=== PATIENT | male | born 1990 | race Caucasian/White ===

== ENCOUNTER 2020-08-21 15:21 | Emergency (ER) | payer OTHER, MEDICAID ==
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
[2020-08-21 17:40] VITALS: BP 117/70
== END 2020-08-21 17:59 | disposition home or self-care (01) ==
LOC: ED 15:21
DX: M62.830 Muscle spasm of back (principal); V43.52XA Car driver injured in collision with other type car in traffic accident, initial encounter; Y92.410 Unspecified street and highway as the place of occurrence of the external cause; M51.37 Other intervertebral disc degeneration, lumbosacral region; F17.200 Nicotine dependence, unspecified, uncomplicated
CPT/HCPCS: 99283; 99284

== ENCOUNTER 2020-09-19 04:09 | Emergency (ER) | payer MEDICAID ==
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
[2020-09-19 04:22] VITALS: BP 119/95
--- OUTSIDE RECORDS SUMMARY | 2020-09-24 01:25 | EXTERNAL MEDICAL SUMMARY RPT | Continuity of Care Document ---
:1990 Demographics Phone Unavailable Preferred Language Unknown Marital Status Unknown Episcopal Affiliation Unknown Race Unknown Ethnic Group Unknown Author Organization [facility] Address [address] [place] [address] Phone Social History date description facility [phone]
== END 2020-09-19 04:41 | disposition home or self-care (01) ==
LOC: ED 04:09
DX: R42 Dizziness and giddiness (principal); M43.6 Torticollis; R20.2 Paresthesia of skin; T50.901A Poisoning by unspecified drugs, medicaments and biological substances, accidental (unintentional), initial encounter; X58.XXXA Exposure to other specified factors, initial encounter; F17.200 Nicotine dependence, unspecified, uncomplicated
CPT/HCPCS: 99281; 99284

== ENCOUNTER 2021-04-05 16:54 | Emergency (ER) | payer MEDICAID ==
[2021-04-05 17:03] VITALS: BP 127/87
[2021-04-05] MEDS ORDERED: CEPHALEXIN 250 MG Prepack 8 CAP BOTTLE PO STA (17:08)
--- NOTE | 2021-04-05 17:09 | ED Physician Documentation ---
PD HPI UPPER EXT INJURY - Stated complaint Stated Complaint: BUG BITE LT HAND - Chief complaint Chief Complaint: Ext Problem - History obtained from History obtained from: Patient - Additonal information Additional information: He thinks a bug may have bitten him on the left hand and now has increasing redness trending towards the wrist. No fevers or chills. Review of Systems Constitutional: reports: Reviewed and negative Eyes: reports: Reviewed and negative Ears: reports: Reviewed and negative Nose: reports: Reviewed and negative Throat: reports: Reviewed and negative PD PAST MEDICAL HISTORY - Past Surgical History Past Surgical History: No - Present Medications Home Medications: Ambulatory Orders Medication Instructions Recorded Confirmed cephALEXin [Keflex] 500 mg PO Q6H #28 cap 04/05/21 - Allergies Allergies/Adverse Reactions: Allergies Allergy/AdvReac Type Severity Reaction Status Date / Time No Known Drug Allergies Allergy Verified 04/05/21 17:03 - Social History Does the pt smoke?: Yes Smoking Status: Current every day smoker Does the pt drink ETOH?: Yes Does the pt have substance abuse?: No - Immunizations Immunizations are current?: Yes - POLST Patient has POLST: No PD ED PE NORMAL - Vitals Vital signs reviewed: Yes - General General: Alert and oriented X 3, No acute distress - Extremities Extremities: Other (There is a nickel sized area of swelling between the distal second and third metacarpals dorsally and very mild cellulitis tracking proximally from that. Full range of motion at all the joints of the hand and the wrist.) - Neuro Neuro: Alert and oriented X 3, Normal speech Results - Vitals Vitals: Vital Signs - 24 hr 04/05/21 16:57 Temperature 36.0 C L Heart Rate 106 H Respiratory 16 Rate Blood Pressure 127/87 H O2 Saturation 100 Oxygen O2 Source Room air Departure - Departure Disposition: Home, Self Care Clinical Impression: Cellulitis of left hand Condition: Good Record reviewed to determine appropriate education?: Yes Instructions: Cellulitis Dc Prescriptions: cephALEXin [Keflex] 500 mg PO Q6H #28 cap Comments: Return if worsening or if you develop a fever. Follow-up with your doctor this coming week for recheck and blood pressure recheck as it was modestly elevated here at 127/87.
== END 2021-04-05 17:16 | disposition home or self-care (01) ==
LOC: ED 16:54
DX: F17.200 Nicotine dependence, unspecified, uncomplicated (principal); L03.114 Cellulitis of left upper limb
CPT/HCPCS: 99282; 99283

== ENCOUNTER 2021-08-21 13:45 | Emergency (ER) | payer MEDICAID, OTHER ==
[2021-08-21 13:49] VITALS: BP 151/87
--- NOTE | 2021-08-21 14:08 | ED Physician Documentation ---
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 He remembers the fall and did not lose consciousness. He felt dazed momentarily. He states he was nauseous and vomited once a couple of minutes after.) Where head injury occurred: [facility] Timing - onset: How many hours ago (1), Today Location of injury: Left, Back Quality of pain: Aching (just in contused area) Associated symptoms: Nausea / vomiting (for few minutes nauseated and then vomited once. No further nausea symtpoms.). No: LOC, AMS, Neck pain, Paresthesias Symptoms worsen with: Palpation. No: Movement Contributing factors: No: Anticoagulated Similar symptoms before: Has not had sx before Recently seen: Not recently seen Review of Systems Constitutional: denies: Fever, Chills Eyes: denies: Loss of vision Nose: denies: Rhinorrhea / runny nose, Congestion Throat: denies: Sore throat Respiratory: denies: Cough Skin: reports: Abrasion (s) (on scalp). denies: Laceration (s) Musculoskeletal: denies: Neck pain, Back pain Neurologic: denies: Focal weakness, Numbness, Altered mental status PD PAST MEDICAL HISTORY - Past Medical History Cardiovascular: None Respiratory: None Neuro: None - Past Surgical History Past Surgical History: No - Present Medications Home Medications: Ambulatory Orders Medication Instructions Recorded Confirmed No Known Home Medications 08/21/21 08/21/21 - Allergies Allergies/Adverse Reactions: Allergies Allergy/AdvReac Type Severity Reaction Status Date / Time No Known Drug Allergies Allergy Verified 08/21/21 13:49 - Social History Does the pt smoke?: Yes Smoking Status: Current every day smoker Does the pt drink ETOH?: Yes Does the pt have substance abuse?: No - Immunizations Immunizations are current?: Yes - POLST Patient has POLST: No PD ED PE NORMAL - Vitals Vital signs reviewed: Yes - General General: Alert and oriented X 3, No acute distress, Well developed/nourished - HEENT HEENT: Other (The left upper occiput has localized area of tenderness and swelling in the scalp. Superficial abrasion. No generalized tenderness. 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 He is feeling better now with just local tenderness in the scalp. No imaging indicated at this point. The patient is comfortable with this.), d/w PMD (I did leave a voicemail with Francisca Drew regarding the evaluation.) Departure - Departure Disposition: 01 Home, Self Care Clinical Impression: Scalp contusion Qualifiers: Encounter type: initial encounter Qualified Code(s): S00.03XA - Contusion of scalp, initial encounter Fall from slip, trip, or stumble Qualifiers: Encounter type: initial encounter Qualified Code(s): W01.0XXA - Fall on same level from slipping, tripping and stumbling without subsequent striking against object, initial encounter Condition: Stable Record reviewed to determine appropriate education?: Yes Instructions: ED Contusion Scalp Follow-Up: FRANCISCA DREW ARNP [Physician No Access] - Comments: TheYou did not really have any ongoing concussive symptoms. Swelling in the scalp should decrease over a day or 2. Use some ointment once or twice daily to the abrasion part to keep it soft. Tylenol or ibuprofen as needed for pains. Return if increased general headache, recurrent vomiting, confusion, other concerns. Regular activity and diet should be okay. Discharge Date/Time: 08/21/21 14:11
== END 2021-08-21 14:11 | disposition home or self-care (01) ==
LOC: ED 13:45
DX: S00.03XA Contusion of scalp, initial encounter (principal); W18.2XXA Fall in (into) shower or empty bathtub, initial encounter; Y93.F1 Activity, caregiving, bathing; F17.200 Nicotine dependence, unspecified, uncomplicated
CPT/HCPCS: 99281; 99282